=== PATIENT | female | born 2000 | race Native Hawaiian/Other Pacific Islander ===

== ENCOUNTER 2019-10-18 09:57 | Emergency (ER) | payer BC ==
--- NOTE | 2019-10-18 10:09 | Emergency Department Report ---
Blank Doc - Documentation Documentation: 19-year-old female that presents with right knee pain with radiation to right thigh. Denies any injuries. HX of tumors. This initial assessment/diagnostic orders/clinical plan/treatment(s) is/are subject to change based on patient's health status, clinical progression and re- assessment by fellow clinical providers in the ED. Further treatment and workup at subsequent clinical providers discretion. Patient/guardians urged not to elope from the ED as their condition may be serious if not clinically assessed and managed. Initial orders include: 1- Patient sent to [facility] for further evaluation and treatment 2- xrays
--- NOTE | 2019-10-18 11:13 | XRay Report ---
RIGHT KNEE 3 VIEW(S) INDICATION / CLINICAL INFORMATION: MAIN: RT knee pain . Knee pain and stiffness x4 days. COMPARISON: None available. FINDINGS: BONES / JOINT(S): No acute fracture or subluxation. No significant arthritis. SOFT TISSUES: No significant abnormality. ADDITIONAL FINDINGS: None. Signer Name: Sabrina Reaves MD Signed: 10/18/2019 11:08 AM Workstation Name: [id number]
[2019-10-18] MEDS ORDERED: KETOROLAC 30 MG/1 ML INJ IM ONE (11:48)
--- NOTE | 2019-10-18 11:55 | Emergency Department Report ---
HPI - General Chief Complaint: Extremity Problem,Nontraumatic Time Seen by Provider: 10/18/19 10:06 - HPI HPI: 19-year-old female presents to the emergency department with complaint of right leg pain over the past 2 to 3 days. Previously it was the right hip, right thigh and the right knee but at this time the patient only complains of right knee pain. She says that there was signs of inflammation but that has since resolved. She has pain with any type of movement of the right knee and has been using a walker at home. 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 She has not taken anything for symptoms prior to presentation. She denies any trauma or injury. 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 - Social History Smoking Status: Never Smoker Substance Use Type: None ED Review of Systems ROS: Stated complaint: LEG PAIN Other details as noted in HPI Comment: All other systems reviewed and negative Constitutional: denies: chills, fever Musculoskeletal: joint swelling, arthralgia Skin: denies: rash, lesions Neurological: denies: numbness, paresthesias Physical Exam - Physical Exam Vital Signs: Vital Signs 10/18/19 10:07 Temperature 97.9 F Pulse Rate 85 Respiratory 18 Rate Blood Pressure 119/80 O2 Sat by Pulse 100 Oximetry Physical Exam: GENERAL: The patient is well-developed well-nourished. HENT: Normocephalic. Atraumatic. Patient has moist mucous membranes. EYES: Extraocular motions are intact. NECK: Supple. Trachea is midline. SKIN: Skin is warm and dry. NEURO: The patient is awake, alert, and oriented. The patient is cooperative. Normal speech. MUSCULOSKELETAL: There is tenderness to palpation of the right knee, as well as pain with both passive and active range of motion. No obvious swelling. Negative anterior and posterior drawer test, and no laxity with valgus or varus stress of the affected right knee. ED Course Vital Signs 10/18/19 10:07 Temperature 97.9 F Pulse Rate 85 Respiratory 18 Rate Blood Pressure 119/80 O2 Sat by Pulse 100 Oximetry ED Medical Decision Making - Radiology Data Radiology results: image reviewed interpreted by me: X-ray of the right knee does not show any fracture, dislocation, or any other acute process. - Medical Decision Making This patient presents with atraumatic right knee pain over the past few days. She has pain with active and passive range of motion. No obvious deformity or appreciable swelling. Negative anterior and posterior drawer test. No laxity with valgus or varus stress. X-ray does not show any fracture, dislocation, or any acute process. She will be placed in an Roman wrap. She was given a shot of Toradol. She has a walker that she has been using at home. She has been given referrals for a local orthopedist. She will return to the ER with any worsening of her symptoms or any acute distress. Critical Care Time: No Critical care attestation.: If time is entered above; I have spent that time in minutes in the direct care of this critically ill patient, excluding procedure time. ED Disposition Clinical Impression: Right knee pain Qualifiers: Chronicity: acute Qualified Code(s): M25.561 - Pain in right knee Disposition: DC- TO HOME OR SELFCARE Is pt being admited?: No Condition: Stable Instructions: Knee Pain (ED) Additional Instructions: Please follow-up with an orthopedist in the next few days. I have given you a referral for to local orthopedist, Dr. Garza and Jorge Luis. Return to the emergency department with any worsening of your symptoms or any acute distress. Referrals: TAYLER GARZA MD [Staff Physician] - 2-3 Days [facility] [Provider Group] - 2-3 Days Time of Disposition: 11:55
[2019-10-18 13:58] VITALS: BP 119/80
== END 2019-10-18 12:54 | disposition home or self-care (01) ==
LOC: ED 09:57
DX: M25.561 Pain in right knee (principal); Z98.890 Other specified postprocedural states; Z88.1 Allergy status to other antibiotic agents
CPT/HCPCS: 73562; 96372; 99284; J1885